=== PATIENT | male | born 1990 | race African-American/Black ===

== ENCOUNTER 2020-12-26 10:23 | Emergency (ER) | payer OTHER ==
[~2020-12-26] VITALS: Ht 185.4 cm; Wt 82.1 kg
[2020-12-26] MEDS ORDERED: ROXICODONE5 M2 PO ×2 (11:23→16:28)
[2020-12-26 13:52] LABS: HEMATOCRIT 35.5 % (42.0-52.0); HEMOGLOBIN 11.9 gm/dL (14.0-18.0); MCH 31.8 pg (26.0-34.0); MCHC 33.5 g/dL (28.0-37.0); RBC 3.74 mil/uL (4.50-6.00); RDW 12.2 % (10.5-14.5); WBC 6.8 thou/uL (4.0-11.0)
[2020-12-26 14:04] LABS: CALCIUM 8.9 mg/dL (8.5-10.1); CREATININE 0.9 mg/dL (0.7-1.3); POTASSIUM 4.3 mmol/L (3.5-5.1)
[2020-12-26] MEDS ORDERED: METHOCARBAMOL500 M2 PO (16:28)
[2020-12-26 16:47] VITALS: BP 143/90
== END 2020-12-26 16:48 | disposition home or self-care (01) ==
LOC: ER 10:23
PROVIDERS: Nurse Practitioner Family
DX: S12.100A Unspecified displaced fracture of second cervical vertebra, initial encounter for closed fracture (principal); R51.9 Headache, unspecified; M54.5 Low back pain; F12.10 Cannabis abuse, uncomplicated; V49.59XA Passenger injured in collision with other motor vehicles in traffic accident, initial encounter; Y93.89 Activity, other specified; Y92.488 Other paved roadways as the place of occurrence of the external cause; Y99.8 Other external cause status